=== PATIENT | male | born 1965 | race Two or more races ===

== ENCOUNTER 2021-08-02 13:52 | Emergency (ER) | payer OTHER ==
[~2021-08-02] VITALS: Ht 177.8 cm; Wt 90.7 kg
[~2021-08-02 13:52] MED LIST: DOLOGEN CAPLET1 EACH PO
== END 2021-08-02 17:53 | disposition home or self-care (01) ==
LOC: ER 13:52
DX: U07.1 COVID-19 (principal); B34.9 Viral infection, unspecified; Z20.822 Contact with and (suspected) exposure to COVID-19

== ENCOUNTER 2023-10-16 10:36 | Emergency (ER) | payer OTHER ==
[~2023-10-16] VITALS: Ht 177.8 cm; Wt 90.7 kg
[2023-10-16 15:25] LABS: HEMATOCRIT 48.5 % (39.0-48.0); HEMOGLOBIN 16.8 g/dL (13-16.00); MEAN CELL VOLUME 89.3 fL (80.0-100.00); MEAN CORPUSCULAR HGB CONC 34.7 g/dl (32.0-36.0); PLATELET COUNT 144 K/uL (150-450); RED BLOOD COUNT 5.44 M/uL (4.00-6.00); RED CELL DISTRIBUTION WIDTH 13.5 % (11.5-14.5)
== END 2023-10-16 16:24 | disposition home or self-care (01) ==
LOC: ER
PROVIDERS: General Practice
DX: D69.6 Thrombocytopenia, unspecified (principal); R53.81 Other malaise; Z20.822 Contact with and (suspected) exposure to COVID-19